=== PATIENT | male | born 1995 | race Two or more races ===

== ENCOUNTER 2024-02-09 20:04 | Emergency (ER) | payer OTHER ==
[~2024-02-09] VITALS: Ht 165.1 cm; Wt 74.8 kg
[2024-02-09] MEDS ORDERED: TDAP [DIPH/PERTUSSIS/TET] 0.5 ML VIAL IM ONE (22:37)
[2024-02-09] MEDS ORDERED: HYDROCODONE/APAP 5/325MG TABLET ONE (22:37)
[2024-02-09] MEDS ORDERED: KETOROLAC TROMETHAMINE 15 MG/ML VIAL ONE (22:37)
[2024-02-09] MEDS ORDERED: CEPHALEXIN MONOHYDRATE 500 MG CAPSULE PO ONE (22:37)
[2024-02-09] MEDS: TDAP [DIPH/PERTUSSIS/TET] 0.5 ML VIAL IM ONE (22:46)
[2024-02-09] MEDS: CEPHALEXIN MONOHYDRATE 500 MG CAPSULE PO ONE (22:46)
[2024-02-09] MEDS: KETOROLAC TROMETHAMINE 15 MG/ML VIAL IM ONE (22:46)
[2024-02-09] MEDS: HYDROCODONE/APAP 5/325MG TABLET PO ONE (22:47)
[2024-02-09] MEDS ORDERED: ACET-2605 PO (23:26)
[2024-02-09] MEDS ORDERED: CEPH500C2 PO (23:26)
[2024-02-09] MEDS ORDERED: IBUP-1955 PO (23:26)
[2024-02-09] MEDS ORDERED: BACI30OI9 TP (23:26)
[2024-02-09] MEDS ORDERED: HYDR-4209 PO (23:26)
[2024-02-09 23:38] VITALS: BP 131/72; TEMP 98.7; O2SAT 100
== END 2024-02-09 23:43 | disposition home or self-care (01) ==
LOC: ER 20:11
DX: S40.021A Contusion of right upper arm, initial encounter (principal); X58.XXXA Exposure to other specified factors, initial encounter; Y93.89 Activity, other specified; Y92.89 Other specified places as the place of occurrence of the external cause; Y99.0 Civilian activity done for income or pay
CPT/HCPCS: 99284; 96372; 90471; 90715; 73080; 73120; 73060; 73030; J1885